=== PATIENT | female | born 2000 | race Caucasian/White ===

== ENCOUNTER 2021-08-02 11:28 | Outpatient (CLI) | payer BC, SELFPAY ==
[2021-08-02 14:53] LABS: SARS-CoV-2 Ag Negative (Negative)
== END 2021-08-02 11:29 | disposition home or self-care (01) ==
PROVIDERS: PCP Family Medicine; Visit Provider Physician Assistant
DX: Z20.822 Contact with and (suspected) exposure to COVID-19 (principal)
CPT/HCPCS: 87426; C9803

== ENCOUNTER → 2024-05-23 15:56 | Outpatient (REF) | payer BC, SELFPAY | LOC: ANHLAB 15:56 | PROVIDERS: PCP Family Medicine; Visit Provider Plastic Surgery | DX: L72.3 Sebaceous cyst (principal) | CPT/HCPCS: 88305 ==